=== PATIENT | male | born 1990 ===

== ENCOUNTER 2017-07-16 23:55 | Emergency (ER) | payer SELFPAY ==
[2017-07-17 00:07] VITALS: RESP 16
[2017-07-17] MEDS ORDERED: Oxycodone/Acetaminophen 5/325 mg Tab PO STA (00:26)
[2017-07-17] MEDS ORDERED: Oxycodone/Acetaminophen 5/325 mg Tab ONE (00:45)
[2017-07-17 01:04] LABS: BASO % 0.7 % (0.0-2.0); EOS # 0.2 K/uL (0.0-0.7); EOS % 3.1 % (0.0-4.0); HEMOGLOBIN 15.9 g/dL (12.0-18.0); LYMPH # 1.7 K/uL (1.0-4.3); LYMPH % 28.5 % (20.0-40.0); MEAN CELL VOLUME 91.7 fl (80.0-94.0); MEAN CORPUSCULAR HEMOGLOBIN 29.9 pg (27.0-31.0); MEAN CORPUSCULAR HGB CONC 32.6 g/dL (33.0-37.0); MEAN PLATELET VOLUME 7.7 fl (7.2-11.7); MONO # 0.5 K/uL (0.0-0.8); MONO % 7.9 % (0.0-10.0); NEUT # 3.5 K/uL (1.8-7.0); NEUT % 59.8 % (50.0-75.0); NRBC % 0.1 % (0.0-0.0); RBC 5.3 Mil/uL (4.40-5.90); RED CELL DISTRIBUTION WIDTH 14.6 % (11.5-14.5); WHITE BLOOD COUNT 5.8 K/uL (4.8-10.8)
--- NOTE | 2017-07-17 01:20 | ED PDOC ---
HPI: Chest Pain Time Seen by Provider: 07/17/17 00:13 Chief Complaint (Nursing): Chest Pain Chief Complaint (Provider): Right Sided Chest Pain History Per: Patient History/Exam Limitations: no limitations Onset/Duration Of Symptoms: Hrs (1 hour ago) Current Symptoms Are (Timing): Still Present Additional Complaint(s): 26 y/o male presents to the ED complaining of acute right-sided chest pain, onset of 1 hour prior to arrival. Patient describes the pain as midsternal chest pain that started when he was lying down at rest, and claims that it worsens with deep breaths. Patient denies any fever, cough, nausea, vomiting, or diarrhea. Of note, patient smokes hookah on occasion. Past Medical History Reviewed: Historical Data, Nursing Documentation, Vital Signs Vital Signs: Last Vital Signs Temp 98.0 F 07/17/17 00:05 Pulse 71 07/17/17 00:05 Resp 16 07/17/17 00:05 BP 152/96 H 07/17/17 00:05 Pulse Ox 98 07/17/17 01:28 - Medical History PMH: No Chronic Diseases - Surgical History Surgical History: No Surg Hx - Family History Family History: States: Unknown Family Hx - Social History Current smoker - smoking cessation education provided: Yes (occasion tobacco smoker (hookah)) Alcohol: None Drugs: Denies - Allergies Allergies/Adverse Reactions: Allergies Allergy/AdvReac Type Severity Reaction Status Date / Time No Known Allergies Allergy Verified 07/17/17 00:08 Review of Systems ROS Statement: Except As Marked, All Systems Reviewed And Found Negative Constitutional: Negative for: Fever Cardiovascular: Positive for: Chest Pain (right sided chest pain, describe as mid chest pain that radiates to back) Respiratory: Negative for: Cough Gastrointestinal: Negative for: Nausea, Vomiting, Diarrhea Physical Exam - Reviewed Nursing Documentation Reviewed: Yes Vital Signs Reviewed: Yes - Physical Exam Appears: Positive for: Non-toxic, No Acute Distress Head Exam: Positive for: ATRAUMATIC Skin: Positive for: Normal Color, Warm Eye Exam: Positive for: Normal appearance, EOMI, PERRL ENT: Positive for: Normal ENT Inspection Neck: Positive for: Normal, Painless ROM, Supple Cardiovascular/Chest: Positive for: Regular Rate, Rhythm. Negative for: Murmur Respiratory: Positive for: Normal Breath Sounds. Negative for: Respiratory Distress Gastrointestinal/Abdominal: Positive for: Normal Exam, Soft. Negative for: Tenderness Back: Positive for: Normal Inspection Extremity: Positive for: Normal ROM. Negative for: Pedal Edema, Deformity Neurologic/Psych: Positive for: Alert, Oriented. Negative for: Motor/Sensory Deficits - Laboratory Results Result Diagrams: 07/17/17 00:15 07/17/17 00:15 - ECG O2 Sat by Pulse Oximetry: 98 (RA) Pulse Ox Interpretation: Normal Medical Decision Making Medical Decision Making: Time: --00:15 Impression: --26 y/o male with chest pain Plan: --ECG --Labs --Drug Screen, Urine --Troponin I --Ed Urine Dip --Chest X-ray --Toradol 15 mg IVP --Oxycodone 1 tab PO --Heplock Insertion --Urinalysis - Reassess --02:10 Labs reviewed and revealed no clinically significant abnormalities. Patient reports of improvement of symptoms and is stable for discharge home. diagnosis: atypical chest pain Scribe Attestation: Documented by Jignesh Haro acting as a scribe for Derik Aguirre MD. Disposition - Clinical Impression Clinical Impression: Atypical chest pain - Patient ED Disposition Is Patient to be Admitted: No - Disposition Referrals: [facility] [Outside] Disposition: Routine/Home Disposition Time: 02:10 Condition: IMPROVED Additional Instructions: Diandra Ibuprofen para dolor Instructions: Noncardiac Chest Pain (ED) Forms: [facility] (Faroese) Print Language: DANISH
[2017-07-17 01:24] LABS: ALB/GLOB RATIO 1.2 (1.0-2.1); ALBUMIN 4.2 g/dL (3.5-5.0); ALT/SGPT 44 U/L (21-72); AST/SGOT 43 U/L (17-59); BLOOD UREA NITROGEN 11 mg/dl (9-20); CALCIUM 9.1 mg/dL (8.4-10.2); GFR AFRICAN-AMERICAN > 60; GFR NON-AFRICAN AMERICAN > 60
[2017-07-17 02:20] VITALS: BP 130/86; PULSE 65; TEMP 98.4; O2SAT 98
--- NOTE | 2017-07-17 08:37 | RAD ---
HISTORY: chest pain COMPARISON: None available. TECHNIQUE: Chest PA and lateral FINDINGS: Examination limited by habitus. LUNGS: No focal consolidation. Please note that chest x-ray has limited sensitivity for the detection of pulmonary masses. PLEURA: No significant pleural effusion identified. No definite pneumothorax . CARDIOVASCULAR: The cardiomediastinal silhouette appears within normal limits of size. OSSEOUS STRUCTURES: No acute osseous abnormality identified. VISUALIZED UPPER ABDOMEN: Unremarkable. OTHER FINDINGS: None. IMPRESSION: No focal consolidation, significant pleural effusion, or definite pneumothorax identified.
--- NOTE | 2017-07-17 11:02 | CARD ---
APPROVED REPORT EKG Measurement Heart [id number] ND [id number] [id number] <Conclusion> Unusual P axis and short ND, probable junctional rhythm Nonspecific T wave abnormality Abnormal ECG
== END 2017-07-17 02:24 | disposition home or self-care (01) ==
LOC: H.ER 23:55
DX: R07.89 Other chest pain (principal)
CPT/HCPCS: 71046; 80053; 84484; 85025; 93005; 96374; 99284; J1885